=== PATIENT | male | born 1940 | race African-American/Black ===

== ENCOUNTER → 2017-01-01 | Outpatient (CLI) | payer MEDICARE | LOC: OD 13:01 | PROVIDERS: ATTEND Internal Medicine | DX: M16.0 Bilateral primary osteoarthritis of hip (principal) | CPT/HCPCS: 73522 ==

== ENCOUNTER → 2017-01-14 | Outpatient (CLI) | payer MEDICARE | LOC: RAD 08:52 | PROVIDERS: ATTEND Internal Medicine | DX: N23 Unspecified renal colic (principal); R94.4 Abnormal results of kidney function studies | CPT/HCPCS: 76770 ==

== ENCOUNTER 2017-11-04 07:16 | Inpatient (IN) | payer MEDICARE ==
--- NOTE | 2017-11-04 07:28 | ER Document Report ---
ED Dizziness/Weakness - General Chief Complaint: Fainting Stated Complaint: SYNCOPE Time Seen by Provider: 11/04/17 07:28 Notes: This is a 76-year-old male to the emergency department after having a syncopal episode this morning. Apparently had one yesterday as well. Patient denies any other symptoms at this time. States that he feels fine. Denies any chest pain, shortness of breath, abdominal pain, fever, chills or sweats. Granddaughter is present. States that he was complaining of a headache a few days ago as well. Has some chronic kidney disease but not on dialysis. No recent antibiotic use. Has started some new medications but does not know the names. he is followed by Dr. Shipman as an outpatient. TRAVEL OUTSIDE OF THE [place] IN LAST 30 DAYS: No - HPI Patient complains to provider of: Syncope Onset: Just prior to arrival Onset/Duration: Sudden Severity: Moderate Pain Level: 0 Associated symptoms: None - Related Data Allergies/Adverse Reactions: No Known Allergies Allergy (Verified 07/01/15 16:20) Past Medical History - General Information source: Patient - Social History Smoking Status: Never Smoker Cigarette use (# per day): No Frequency of alcohol use: None Drug Abuse: None Lives with: Family Family History: Reviewed & Not Pertinent - Past Medical History Cardiac Medical History: Reports: Hx Hypertension Pulmonary Medical History: Denies: Hx Tuberculosis Psychiatric Medical History: Denies: Hx Depression - Immunizations Hx Diphtheria, Pertussis, Tetanus Vaccination: Yes Review of Systems - Review of Systems Constitutional: No symptoms reported. denies: Chills, Diaphoresis, Fever, Malaise, Weakness EENT: No symptoms reported. denies: Blurred vision, Double vision, Ear pain, Throat pain, Difficulty swallowing Cardiovascular: No symptoms reported, Syncope. denies: Chest pain, Palpitations , Heart racing, Orthopnea, Edema, Paroxysmal Nocturnal Dysp Respiratory: No symptoms reported. denies: Cough, Hurts to breathe, Short of breath Gastrointestinal: No symptoms reported. denies: Abdominal pain, Diarrhea, Nausea, Vomiting Genitourinary: No symptoms reported. denies: Burning, Frequency, Flank pain, Hematuria Musculoskeletal: No symptoms reported. denies: Back pain, Gout, Joint pain, Joint swelling, Muscle stiffness, Neck pain Skin: No symptoms reported Hematologic/Lymphatic: No symptoms reported. denies: Anemia, Easy bleeding, Easy bruising Neurological/Psychological: No symptoms reported, Headaches. denies: Dementia, Depression, Anxiety, Weakness Physical Exam - Vital signs Vitals: Resp Pulse Ox 20 97 11/04/17 07:22 11/04/17 07:22 Interpretation: Hypotensive - General General appearance: Appears well, Alert - HEENT Head: Normocephalic, Atraumatic Eyes: Normal Pupils: PERRL - Respiratory Respiratory status: No respiratory distress Chest status: Nontender Breath sounds: Normal Chest palpation: Normal - Cardiovascular Rhythm: Regular Heart sounds: Normal auscultation Murmur: No - Abdominal Inspection: Normal Distension: No distension Bowel sounds: Normal Tenderness: Nontender Organomegaly: No organomegaly - Back Back: Normal, Nontender - Extremities General upper extremity: Normal inspection, Nontender, Normal color, Normal ROM , Normal temperature General lower extremity: Normal inspection, Nontender, Normal color, Normal ROM , Normal temperature, Normal weight bearing. No: Masoud's sign - Neurological Neuro grossly intact: Yes Cognition: Normal Orientation: AAOx4 Navid Coma Scale Eye Opening: Spontaneous Navid Coma Scale Verbal: Oriented Navid Coma Scale Motor: Obeys Commands Mccomb Coma Scale Total: 15 Speech: Normal Motor strength normal: LUE, RUE, LLE, RLE Sensory: Normal - Psychological Associated symptoms: Normal affect, Normal mood - Skin Skin Temperature: Warm Skin Moisture: Dry Skin Color: Normal Course - Re-evaluation Re-evalutation: 11/04/17 08:39 Patient with reported syncopal episodes. Patient is 76-year-old male. Bigeminy on EKG. Otherwise labs fairly unremarkable with exception of chronic kidney disease. Patient was positive for orthostatic vital signs with hypotension noted when standing. Will consult with his primary care doctor at this time, Dr. Shipman for admit - Vital Signs Vital signs: Temp Pulse Resp BP Pulse Ox 97.8 F 84 19 117/72 95 11/04/17 07:29 11/04/17 07:33 11/04/17 07:33 11/04/17 07:33 11/04/17 07:33 - Laboratory Result Diagrams: 11/04/17 07:00 11/04/17 07:00 Laboratory results interpreted by me: 11/04/17 11/04/17 07:00 07:00 RBC 4.12 L Hgb 12.4 L Hct 37.3 L Seg Neutrophils % 32.2 L Lymphocytes % 52.0 H Monocytes % 14.0 H Absolute Neutrophils 1.5 L BUN 27 H Creatinine 2.40 H Est GFR ( Amer) 32 L Est GFR (Non-Af Amer) 26 L Calcium 8.2 L ALT 13 L Albumin 3.2 L - EKG Interpretation by [place] EKG shows normal: Sinus rhythm, Intervals, QRS Complexes, ST-T Waves Rhythm: Other - Ventricular bigeminy with a left axis deviation Discharge - Discharge Clinical Impression: Orthostatic hypotension, Syncope and collapse Condition: Good Disposition: ADMITTED INPATIENT Unit Admitted: Telemetry - Dr. Shipman Referrals: BERTA SHIPMAN MD [Primary Care Provider] - Follow up as needed
[2017-11-04] MEDS ORDERED: NORMAL SALINE 1000 ML 1,000 ML IV ONE (07:46)
--- NOTE | 2017-11-04 07:46 | EKG REPORT ---
SEVERITY:- ABNORMAL ECG - SINUS RHYTHM VENTRICULAR BIGEMINY LEFT AXIS DEVIATION BORDERLINE R WAVE PROGRESSION, ANTERIOR LEADS , CONSIDER OLD ANT NY BORDERLINE T ABNORMALITIES, INFERIOR LEADS : Confirmed by: Burt Flores MD 04-Nov-2017 07:46:20
[2017-11-04 07:50] LABS: ABSOLUTE EOSINOPHILS # (AUTO) 0.1 10^3/uL (0.0-0.6); ABSOLUTE LYMPHOCYTES (AUTO) 2.3 10^3/uL (0.5-4.7); ABSOLUTE MONOCYTES (AUTO) 0.6 10^3/uL (0.1-1.4); ABSOLUTE NEUT (AUTO) 1.5 10^3/uL (1.7-8.2); BASOPHILS % (AUTO) 0.4 % (0-2); EOSINOPHILS % (AUTO) 1.4 % (0-6); HEMATOCRIT 37.3 % (37.9-51.0); HEMOGLOBIN 12.4 g/dL (13.5-17.0); MEAN CORPUSCULAR HGB CONC 33.2 g/dL (32.0-36.0); MEAN CORPUSCULAR VOLUME 91 fl (80-97); PLATELET COUNT 214 10^3/uL (150-450); RED BLOOD COUNT 4.12 10^6/uL (4.35-5.55); RED CELL DISTRIBUTION WIDTH 12.5 % (11.5-14.0); SEGMENTED NEUTROPHILS % (AUTO) 32.2 % (42-78); TOTAL CELLS COUNTED % (AUTO) 100 %; WHITE BLOOD COUNT 4.5 10^3/uL (4.0-10.5)
[2017-11-04 07:54] LABS: ALANINE AMINOTRANSFERASE 13 U/L (21-72); ALBUMIN 3.2 g/dL (3.5-5.0); ALKALINE PHOSPHATASE 59 U/L (38-126); ANION GAP 11 (5-19); ASPARTATE AMINO TRANSFERASE 21 U/L (17-59); BILIRUBIN,DIRECT 0.4 mg/dL (0.0-0.4); BILIRUBIN,TOTAL 0.4 mg/dL (0.2-1.3); BLOOD UREA NITROGEN 27 mg/dL (7-20); CALCIUM 8.2 mg/dL (8.4-10.2); CARBON DIOXIDE 24 mmol/L (22-30); CHLORIDE 107 mmol/L (98-107); CREATINE KINASE 89 U/L (55-170); GLUCOSE 97 mg/dL (75-110); POTASSIUM 3.7 mmol/L (3.6-5.0); SODIUM 141.6 mmol/L (137-145); TOTAL PROTEIN 6.7 g/dL (6.3-8.2)
[2017-11-04 08:04] LABS: CREATINE KINASE MB 0.29 ng/mL (<4.55)
[2017-11-04 08:05] LABS: TROPONIN I < 0.012 ng/mL
--- NOTE | 2017-11-04 08:07 | RADIOLOGY REPORT (SQ) ---
EXAM DESCRIPTION: CT HEAD WITHOUT COMPLETED DATE/TIME: 11/04/2017 7:57 am REASON FOR STUDY: headache and syncope COMPARISON: CT brain 11/08/2007 TECHNIQUE: Axial images acquired through the brain without intravenous contrast. Images reviewed wi th bone, brain and subdural windows. Images stored on PACS. All CT scanners at this facility use dose modulation, iterative reconstruction, and/or weight based d osing when appropriate to reduce radiation dose to as low as reasonably achievable (ALARA). [facility]: Dose Right [facility]: CareDose [facility]: Dose Right [facility]: Teradose 4D [facility]: Smart Technologies RADIATION DOSE: CT Rad equipment meets quality standard of care and radiation dose reduction techniq ues were employed. CTDIvol: 64.6 mGy. DLP: 1163 mGy-cm. mGy. LIMITATIONS: None. FINDINGS: VENTRICLES: Normal size and contour. CEREBRUM: No CT evidence of acute intracranial hemorrhage, mass effect, or midline. There is patchy b ifrontal and biparietal small vessel ischemic change in the deep white matter. CEREBELLUM: No acute hemorrhage. No mass effect or midline shift. Multiple old infarcts in the righ t and left cerebellar hemispheres EXTRAAXIAL SPACES: No fluid collections. No masses. ORBITS AND GLOBE: No intra- or extraconal masses. Normal contour of globe without masses. CALVARIUM: No fracture. PARANASAL SINUSES: No fluid or mucosal thickening. SOFT TISSUES: No mass or hematoma. OTHER: No other significant finding. 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 No acute findings EVIDENCE OF ACUTE STROKE: NO. COMMENT: Quality ID # [id number]: Final reports with documentation of one or more dose reduction techniques (e.g., Automated exposure control, adjustment of the mA and/or kV according to patient size, use of iterative reconstruction technique) TECHNICAL DOCUMENTATION: JOB ID: [id number] [employer] All Rights Reserved
--- NOTE | 2017-11-04 08:08 | RADIOLOGY REPORT (SQ) ---
EXAM DESCRIPTION: CHEST SINGLE VIEW COMPLETED DATE/TIME: 11/04/2017 7:59 am REASON FOR STUDY: syncope COMPARISON: AP chest 03/15/2014 EXAM PARAMETERS: NUMBER OF VIEWS: One view. TECHNIQUE: Single frontal radiographic view of the chest acquired. RADIATION DOSE: NA LIMITATIONS: None. FINDINGS: LUNGS AND PLEURA: No opacities, masses or pneumothorax. No pleural effusion. MEDIASTINUM AND HILAR STRUCTURES: No masses. Contour normal. HEART AND VASCULAR STRUCTURES: Heart normal in size. Normal vasculature. BONES: No acute findings. HARDWARE: None in the chest. OTHER: No other significant finding. IMPRESSION: NO ACUTE RADIOGRAPHIC FINDING IN THE CHEST. TECHNICAL DOCUMENTATION: JOB ID: [id number] [employer]- All Rights Reserved
[2017-11-04 09:25] LABS: APPEARANCE,URINE CLEAR; BILIRUBIN,URINE NEGATIVE (NEGATIVE); COLOR,URINE YELLOW; GLUCOSE, URINE NEGATIVE (NEGATIVE); KETONES,URINE NEGATIVE (NEGATIVE); LEUKOCYTE ESTERASE,URINE NEGATIVE (NEGATIVE); NITRITE,URINE NEGATIVE (NEGATIVE); PROTEIN,URINE NEGATIVE (NEGATIVE)
[2017-11-04 14:21] LABS: URINE AMPHETAMINES SCREEN NEGATIVE; URINE BARBITURATES SCREEN NEGATIVE; URINE BENZODIAZEPINES SCREEN NEGATIVE; URINE COCAINE SCREEN NEGATIVE; URINE MARIJUANA (THC) SCREEN NEGATIVE; URINE METHADONE SCREEN NEGATIVE; URINE PHENCYCLIDINE SCREEN NEGATIVE
[2017-11-04] MEDS: HEPARIN SOD (PORCINE) 5,000 UNIT/ML 1 ML SYRINGE SUBCUT SCH ×2 (15:28→21:25)
[2017-11-04 15:34] LABS: INTERNATIONAL RATION (INR) 1.03; PROTHROMBIN TIME 14.2 SEC (11.4-15.4)
[2017-11-04 15:35] LABS: PARTIAL THROMBOPLASTIN TIME 32.3 SEC (23.5-35.8)
[2017-11-04 15:50] LABS: LIPASE 278.2 U/L (23-300); PHOSPHORUS 2.9 mg/dL (2.5-4.5)
[2017-11-04 16:04] LABS: CREATINE KINASE MB 0.46 ng/mL (<4.55)
[2017-11-04 16:08] LABS: FREE T4 (FREE THYROXINE) 0.97 ng/dL (0.78-2.19)
[2017-11-04 16:09] LABS: TROPONIN I < 0.012 ng/mL
[2017-11-04 16:22] LABS: THYROID STIMULATING HORMONE 0.94 uIU/mL (0.47-4.68)
[2017-11-04] MEDS: NORMAL SALINE 1000 ML 1,000 ML IV PRN (19:07)
[2017-11-04 22:12] LABS: CREATINE KINASE MB 0.43 ng/mL (<4.55)
[2017-11-04 22:23] LABS: TROPONIN I < 0.012 ng/mL
[2017-11-05] MEDS: HEPARIN SOD (PORCINE) 5,000 UNIT/ML 1 ML SYRINGE SUBCUT SCH ×3 (05:30→21:13)
[2017-11-05] MEDS: NORMAL SALINE 1000 ML 1,000 ML IV PRN ×2 (05:34→21:11)
[2017-11-05 14:24] LABS: ABSOLUTE BASOPHILS # (AUTO) 0.1 10^3/uL (0.0-0.2); ABSOLUTE EOSINOPHILS # (AUTO) 0.1 10^3/uL (0.0-0.6); ABSOLUTE MONOCYTES (AUTO) 0.5 10^3/uL (0.1-1.4); ABSOLUTE NEUT (AUTO) 2.6 10^3/uL (1.7-8.2); BASOPHILS % (AUTO) 1.3 % (0-2); EOSINOPHILS % (AUTO) 1.2 % (0-6); HEMATOCRIT 36.9 % (37.9-51.0); HEMOGLOBIN 12.2 g/dL (13.5-17.0); LYMPHOCYTES % (AUTO) 38.3 % (13-45); MEAN CORPUSCULAR HEMOGLOBIN 29.8 pg (27.0-33.4); MEAN CORPUSCULAR VOLUME 90 fl (80-97); MONOCYTES % (AUTO) 10.1 % (3-13); PLATELET COUNT 214 10^3/uL (150-450); RED BLOOD COUNT 4.09 10^6/uL (4.35-5.55); RED CELL DISTRIBUTION WIDTH 12.7 % (11.5-14.0); SEGMENTED NEUTROPHILS % (AUTO) 49.1 % (42-78); TOTAL CELLS COUNTED % (AUTO) 100 %; WHITE BLOOD COUNT 5.2 10^3/uL (4.0-10.5)
--- NOTE | 2017-11-05 14:33 | PDOC H&P ---
History of Present Illness Admission Date/PCP: 11/04/17 09:50 BERTA SHIPMAN MD History of Present Illness: RICK SINGER SR is a 76 year old male, he has a history of dementia, hypertension, he was brought to the emergency room for evaluation of fainting spells. He has a history of chronic kidney disease with a baseline creatinine of 1.4. EMS was called to patient's residence, on evaluation by the EMS staff he was found to have a low blood pressure, the systolic blood pressure was as low as 60 he was transferred to from his residence to the emergency room for evaluation. In the emergency room blood work was done the serum creatinine was 2.4, CT head was done it showed multiple old infarcts in the right and left cerebellar hemispheres. Also found was patchy bifrontal and biparietal small vessel ischemic change in the white matter. When I saw the patient he cannot recall the incidents that led to his admission, he does not remember passing out. He denies any chest pain or shortness of breath. He recently had Mini- Mental evaluation done in the office, he was found to have mild dementia and he was started on Aricept. The exact etiology of the low blood pressure is not clear, there is no history of diarrhea, no history of vomiting, no history of bleeding. Past Medical History Cardiac Medical History: Reports: Hypertension Renal/ Medical History: Reports: Chronic Kidney Disease, Other - Chronic kidney disease stage III Musculoskeltal Medical History: Reports: Arthritis Psychiatric Medical History: Reports: Dementia Social History Lives with: Family Smoking Status: Former Smoker Frequency of Alcohol Use: None Hx Recreational Drug Use: No Hx Prescription Drug Abuse: No Family History Family History: Reviewed & Not Pertinent Parental Family History Reviewed: Yes Children Family History Reviewed: Yes Sibling(s) Family History Reviewed.: Yes Medication/Allergy Home Medications: Acetaminophen [Tylenol Extra Strength 500 mg Tablet] 500 mg PO Q6 11/04/17 Allopurinol [Zyloprim 100 mg Tablet] 100 mg PO TID 11/04/17 Aspirin [Aspirin 81 mg Chewable Tablet] 81 mg PO DAILY 11/04/17 Lisinopril/Hydrochlorothiazide [Lisinopril-Hctz 20-12.5 mg Tab] 1 tab PO Q12 Allergies/Adverse Reactions: No Known Allergies Allergy (Verified 11/04/17 08:49) Review of Systems Constitutional: ABSENT: chills, fever(s), headache(s), weight gain, weight loss Eyes: ABSENT: visual disturbances Ears: ABSENT: hearing changes Cardiovascular: ABSENT: chest pain, dyspnea on exertion, edema, orthropnea, palpitations Respiratory: ABSENT: cough, hemoptysis Gastrointestinal: ABSENT: abdominal pain, constipation, diarrhea, hematemesis, hematochezia, nausea, vomiting Genitourinary: ABSENT: dysuria, hematuria Musculoskeletal: ABSENT: joint swelling Integumentary: ABSENT: rash, wounds Neurological: PRESENT: syncope Psychiatric: ABSENT: anxiety, depression, homidical ideation, suicidal ideation Endocrine: ABSENT: cold intolerance, heat intolerance, menstrual abnormalities, polydipsia, polyuria Hematologic/Lymphatic: ABSENT: easy bleeding, easy bruising, lymphadenopathy Physical Exam Vital Signs: Temp Pulse Resp BP Pulse Ox 98.4 F 65 16 98/72 L 100 11/05/17 12:02 11/05/17 12:02 11/05/17 12:02 11/05/17 12:02 11/05/17 12:02 Intake & Output 11/04/17 11/05/17 11/06/17 06:59 06:59 06:59 Intake Total 1037 Balance 1037 Weight 69.9 kg General appearance: PRESENT: no acute distress, well-developed, well-nourished Head exam: PRESENT: atraumatic, normocephalic Eye exam: PRESENT: conjunctiva pink, EOMI, PERRLA Ear exam: PRESENT: normal external ear exam Mouth exam: PRESENT: moist, tongue midline Neck exam: PRESENT: full ROM Respiratory exam: PRESENT: clear to auscultation du Cardiovascular exam: PRESENT: RRR, +S1, +S2 GI/Abdominal exam: PRESENT: normal bowel sounds, soft Rectal exam: PRESENT: deferred Neurological exam: PRESENT: alert, awake, oriented to person, oriented to place , oriented to time, oriented to situation, CN II-XII grossly intact Psychiatric exam: PRESENT: appropriate affect, normal mood Skin exam: PRESENT: dry, intact, warm Results Laboratory Results: 11/04/17 11/04/17 11/04/17 15:18 15:18 15:18 Phosphorus 2.9 Magnesium 2.1 Ammonia < 8.7 L Amylase 106 Lipase 278.2 TSH 0.94 Free T4 0.97 0211/04/17 11/04/17 15:18 15:18 21:34 Creatine Kinase 103 84 CK-MB (CK-2) 0.46 Troponin I < 0.012 11/04/17 21:34 Creatine Kinase CK-MB (CK-2) 0.43 Troponin I < 0.012 Impressions: Chest X-Ray 11/04/17 07:29 IMPRESSION: NO ACUTE RADIOGRAPHIC FINDING IN THE CHEST. 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 No acute findings EVIDENCE OF ACUTE STROKE: NO. Assessment & Plan - Diagnosis (1) Acute kidney injury Is this a current diagnosis for this admission?: Yes Plan: He has acute kidney injury most likely due to ATN from hypotension, kidney ultrasound was done recently, will slowly hydrate patient with normal saline, will continue to monitor kidney function very closely (2) Syncope Qualifiers: Syncope type: unspecified Qualified Code(s): R55 - Syncope and collapse Is this a current diagnosis for this admission?: Yes Plan: The loss of consciousness is most likely from the low blood pressure, 2D echo will be ordered, cardiac enzymes will be ordered (3) Hypotension Qualifiers: Hypotension type: unspecified hypotension type Qualified Code(s): I95.9 - Hypotension, unspecified Is this a current diagnosis for this admission?: Yes Plan: The exact etiology of the hypotension is not clear, there is no evidence of loss of volume, there is no hemorrhage, no GI bleed no diarrhea no vomiting (4) Dementia Qualifiers: Dementia type: Alzheimer's disease Alzheimer's disease onset: late-onset Dementia behavioral disturbance: without behavioral disturbance Qualified Code (s): G30.1 - Alzheimer's disease with late onset; F02.80 - Dementia in other diseases classified elsewhere without behavioral disturbance; F02.80 - Dementia in other diseases classified elsewhere without behavioral disturbance; F02.80 - Dementia in other diseases classified elsewhere without behavioral disturbance Is this a current diagnosis for this admission?: Yes Plan: Patient with baseline dementia that could be a component of low intake with dehydration
[2017-11-05 15:41] LABS: ALANINE AMINOTRANSFERASE 16 U/L (21-72); ALBUMIN 3.1 g/dL (3.5-5.0); ALKALINE PHOSPHATASE 59 U/L (38-126); ANION GAP 8 (5-19); ASPARTATE AMINO TRANSFERASE 21 U/L (17-59); BILIRUBIN,DIRECT 0.3 mg/dL (0.0-0.4); BILIRUBIN,TOTAL 0.3 mg/dL (0.2-1.3); BLOOD UREA NITROGEN 20 mg/dL (7-20); CALCIUM 8.2 mg/dL (8.4-10.2); CARBON DIOXIDE 23 mmol/L (22-30); CHLORIDE 109 mmol/L (98-107); GLUCOSE 85 mg/dL (75-110); POTASSIUM 3.8 mmol/L (3.6-5.0); SODIUM 140.3 mmol/L (137-145); TOTAL PROTEIN 6.5 g/dL (6.3-8.2)
--- NOTE | 2017-11-05 17:15 | PDOC PROGRESS REPORT ---
Subjective Progress Note for:: 11/05/17 Subjective:: Patient was seen today by the bedside, he is very confused, he pulled off his IV , expressing noncoherent issues. The kidney function is improved from yesterday with hydration suggesting that the acute kidney injury is probably prerenal, 2D echo was done today result is pending. Patient is refusing IV to be restarted. Reason For Visit: HYPOTENSION, SYNCOPE Physical Exam Vital Signs: Temp Pulse Resp BP Pulse Ox 97.7 F 57 L 16 161/76 H 100 11/05/17 16:04 11/05/17 16:04 11/05/17 16:04 11/05/17 16:04 11/05/17 16:04 Intake & Output 11/04/17 11/05/17 11/06/17 06:59 06:59 06:59 Intake Total 1037 Balance 1037 Weight 69.9 kg General appearance: PRESENT: no acute distress Eye exam: PRESENT: PERRLA Respiratory exam: PRESENT: clear to auscultation du Cardiovascular exam: PRESENT: +S1, +S2 Neurological exam: PRESENT: alert, other - Very confused Results Laboratory Results: 11/05/17 13:59 11/05/17 14:53 11/05/17 11/05/17 13:59 14:53 WBC 5.2 RBC 4.09 L Hgb 12.2 L Hct 36.9 L MCV 90 MCH 29.8 MCHC 33.0 RDW 12.7 Plt Count 214 Seg Neutrophils % 49.1 Lymphocytes % 38.3 Monocytes % 10.1 Eosinophils % 1.2 Basophils % 1.3 Absolute Neutrophils 2.6 Absolute Lymphocytes 2.0 Absolute Monocytes 0.5 Absolute Eosinophils 0.1 Absolute Basophils 0.1 Sodium 140.3 Potassium 3.8 Chloride 109 H Carbon Dioxide 23 Anion Gap 8 BUN 20 Creatinine 1.36 H Est GFR ( Amer) > 60 Est GFR (Non-Af Amer) 51 L Glucose 85 Calcium 8.2 L Total Bilirubin 0.3 AST 21 ALT 16 L Alkaline Phosphatase 59 Total Protein 6.5 Albumin 3.1 L 11/04/17 11/04/17 11/04/17 15:18 15:18 21:34 Creatine Kinase 103 84 CK-MB (CK-2) 0.46 Troponin I < 0.012 11/04/17 21:34 Creatine Kinase CK-MB (CK-2) 0.43 Troponin I < 0.012 Impressions: Chest X-Ray 11/04/17 07:29 IMPRESSION: NO ACUTE RADIOGRAPHIC FINDING IN THE CHEST. 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 No acute findings EVIDENCE OF ACUTE STROKE: NO. Assessment & Plan - Diagnosis (1) Acute kidney injury Is this a current diagnosis for this admission?: Yes (2) Syncope Qualifiers: Syncope type: unspecified Qualified Code(s): R55 - Syncope and collapse Is this a current diagnosis for this admission?: Yes (3) Hypotension Qualifiers: Hypotension type: unspecified hypotension type Qualified Code(s): I95.9 - Hypotension, unspecified Is this a current diagnosis for this admission?: Yes (4) Dementia Qualifiers: Dementia type: Alzheimer's disease Alzheimer's disease onset: late-onset Dementia behavioral disturbance: without behavioral disturbance Qualified Code (s): G30.1 - Alzheimer's disease with late onset; F02.80 - Dementia in other diseases classified elsewhere without behavioral disturbance; F02.80 - Dementia in other diseases classified elsewhere without behavioral disturbance; F02.80 - Dementia in other diseases classified elsewhere without behavioral disturbance Is this a current diagnosis for this admission?: Yes (5) Delirium Is this a current diagnosis for this admission?: Yes Plan: The exact etiology is not clear, the differential diagnosis will include metabolic, sundowning, progressive dementia, haldol 5 mg IM administered
[2017-11-05] MEDS ORDERED: HALOPERIDOL LACTATE INJ 5 MG/1 ML VIAL IM ONE (18:15)
--- NOTE | 2017-11-05 18:51 | XCELERA REPORT ---
[address] [address] Transthoracic Echocardiogram Report Name: RICK SINGER SR Age: 76 yrs Gender: Male : 1940 Patient Status: Inpatient Patient Location: [address] [place] [address] Study Date: 11/05/2017 03:23 PM Height: 63 in Weight: 151 lb BSA: 1.7 m2 Procedure: A complete two-dimensional transthoracic echocardiogram was performed (2D, M-mode, spectral and color flow Doppler). The study was technically adequate with some images being suboptimal in quality. Reason For Study: syncope Ordering Physician: BERTA SHIPMAN Performed By: Hilda Patel Interpretation Summary Left ventricular systolic function is low normal. There is borderline concentric left ventricular hypertrophy. The left ventricle is grossly normal size. Doppler measurements suggest pseudonormalized left ventricular relaxation, which is associated with grade II/IV or mild to moderate diastolic dysfunction Not all wall segments were well visualized. The right ventricular systolic function is normal. The right atrium is normal in size The left atrial size is normal. There is a moderate amount of mitral regurgitation There is no mitral valve stenosis. There is a trace to mild amount of aortic regurgitation There is no aortic valve stenosis There is a trace or physiologic amount of tricuspid regurgitation Tricuspid regurgitation jet envelope not well defined to measure RV systolic pressure accurately. The aortic root is not well visualized but is probably normal size. The inferior vena cava appeared normal and decreased > 50% with respiration (RAP 5-10 mmHg) There is no pericardial effusion. MMode/2D Measurements & Calculations RVDd: 3.3 cm LVIDd: 4.4 cm FS: 33.3 % Ao root diam: 3.3 cm IVSd: 1.2 cm LVIDs: 3.0 cm EDV(Teich): 88.8 ml LVPWd: 0.96 cm ESV(Teich): 33.6 ml Ao root area: 8.5 cm2 EF(Teich): 62.2 % LA dimension: 3.2 cm Doppler Measurements & Calculations MV E max héctor: MV P1/2t max héctor: Ao V2 max: LV V1 max P.5 cm/sec 79.0 cm/sec 101.6 cm/sec 2.5 mmHg MV A max héctor: MV P1/2t: 67.1 msec Ao max PG: LV V1 max: 79.5 cm/sec 4.1 mmHg 78.5 cm/sec MV E/A: 1.0 MVA(P1/2t): 3.3 cm2 MV dec slope: 344.9 cm/sec2 MV dec time: 0.21 sec PA V2 max: PI end-d héctor: TR max héctor: 76.0 cm/sec 69.2 cm/sec 198.2 cm/sec PA max PG: TR max P.3 mmHg 15.7 mmHg Left Ventricle The left ventricle is grossly normal size. There is borderline concentric left ventricular hypertrophy. Left ventricular systolic function is low normal. Doppler measurements suggest pseudonormalized left ventricular relaxation, which is associated with grade II/IV or mild to moderate diastolic dysfunction. Not all wall segments were well visualized. Right Ventricle The right ventricle is grossly normal size. There is normal right ventricular wall thickness. The right ventricular systolic function is normal. Atria The right atrium is normal in size. The left atrial size is normal. Interarterial septum not well visualized and not well dopplered. Cannot comment on ASD/PFO presence. Mitral Valve The mitral valve is grossly normal. There is no mitral valve stenosis. There is a moderate amount of mitral regurgitation. Aortic Valve The aortic valve opens well. The aortic valve is trileaflet. There is no aortic valve stenosis. There is a trace to mild amount of aortic regurgitation. Tricuspid Valve The tricuspid valve is not well visualized secondary to technical limitations. There is no tricuspid stenosis. There is a trace or physiologic amount of tricuspid regurgitation. Tricuspid regurgitation jet envelope not well defined to measure RV systolic pressure accurately. Pulmonic Valve The pulmonic valve is not well visualized. Great Vessels The aortic root is not well visualized but is probably normal size. The inferior vena cava appeared normal and decreased > 50% with respiration (RAP 5-10 mmHg). Effusions There is no pericardial effusion. : BERTA SHIPMAN > Simona Carranza
[2017-11-06] MEDS: HEPARIN SOD (PORCINE) 5,000 UNIT/ML 1 ML SYRINGE SUBCUT SCH ×3 (05:12→23:59)
[2017-11-06 06:03] LABS: ABSOLUTE EOSINOPHILS # (AUTO) 0.2 10^3/uL (0.0-0.6); ABSOLUTE LYMPHOCYTES (AUTO) 2.4 10^3/uL (0.5-4.7); ABSOLUTE MONOCYTES (AUTO) 0.6 10^3/uL (0.1-1.4); BASOPHILS % (AUTO) 0.4 % (0-2); EOSINOPHILS % (AUTO) 3.1 % (0-6); HEMATOCRIT 33.1 % (37.9-51.0); LYMPHOCYTES % (AUTO) 45.8 % (13-45); MEAN CORPUSCULAR HEMOGLOBIN 29.9 pg (27.0-33.4); MEAN CORPUSCULAR HGB CONC 33.4 g/dL (32.0-36.0); MEAN CORPUSCULAR VOLUME 90 fl (80-97); MONOCYTES % (AUTO) 11.6 % (3-13); PLATELET COUNT 185 10^3/uL (150-450); RED BLOOD COUNT 3.69 10^6/uL (4.35-5.55); RED CELL DISTRIBUTION WIDTH 12.5 % (11.5-14.0); SEGMENTED NEUTROPHILS % (AUTO) 39.1 % (42-78); TOTAL CELLS COUNTED % (AUTO) 100 %; WHITE BLOOD COUNT 5.2 10^3/uL (4.0-10.5)
[2017-11-06] MEDS: NORMAL SALINE 1000 ML 1,000 ML IV PRN ×2 (09:05→18:56)
--- NOTE | 2017-11-06 10:31 | RADIOLOGY REPORT (SQ) ---
EXAM DESCRIPTION: U/S RETROPERITON (RENAL/AORTA) COMPLETED DATE/TIME: 11/06/2017 9:59 am REASON FOR STUDY: acute kidney injury COMPARISON: Renal ultrasound 07/18/2010, 06/19/2016, 01/14/2017 MRI lumbar spine 08/13/2010 TECHNIQUE: Dynamic and static grayscale images acquired of the kidneys and bladder and recorded on P ACS. Additional selected color Doppler and spectral images recorded. LIMITATIONS: None. FINDINGS: On the right side, the kidney measures 9.8 cm in length with diffuse cortical thinning and increased echogenicity, new since 2009. There are multiple right-sided renal cortical cysts, the la rgest is 9 cm in size along the right mid-pole kidney. On the left side, kidney measures 10 cm in length with very mild cortical thinning and normal cortica l echogenicity, similar compared to studies dating back to 2009. Multiple left renal cortical cysts are present, the largest is 5 cm in size. No hydronephrosis. No renal stones. Urinary bladder unremarkable IMPRESSION: No hydronephrosis. No gross ultrasound evidence of urinary calculi. Right-sided renal cortical thinning and increased echogenicity new compared to 2009. Multiple bilateral renal cortical cysts TECHNICAL DOCUMENTATION: JOB ID: [id number] [employer]- All Rights Reserved
--- NOTE | 2017-11-06 10:40 | Physician Advisory Note ---
Physician Advisor ProgressNote .: Pursuant to the plan for [facility], I have reviewed the medical record for this patient. Physician Advisor Statement: Nice documentation of NELA w/baseline Cr 1.4, & of specific examples describing acute delirium. Please consider documenting, if you agree: 1. "syncope, suspect due to " (need cause explicit) 2. "acute delirium, due to " (& again mention in the DCSummary the evidence of change from baseline mental status) A. "Acute ____ Encephalopathy, due to " (NELA, intravascular volume depletion, cerebral ischemia from hypotension, infxn, ...), - or - B. Psych d/o: "progressive ___ type dementia [&/or sundowning]" Please also continue either to document "ATN due to severe hypotension", or state "ATN was ruled out". Thanks! CK
[2017-11-06 19:38] LABS: ABSOLUTE EOSINOPHILS # (AUTO) 0.2 10^3/uL (0.0-0.6); ABSOLUTE MONOCYTES (AUTO) 0.7 10^3/uL (0.1-1.4); ABSOLUTE NEUT (AUTO) 2.6 10^3/uL (1.7-8.2); HEMATOCRIT 35.4 % (37.9-51.0); MEAN CORPUSCULAR HEMOGLOBIN 29.8 pg (27.0-33.4); TOTAL CELLS COUNTED % (AUTO) 100 %
[2017-11-06 19:46] LABS: ABSOLUTE LYMPHOCYTES (AUTO) 2.5 10^3/uL (0.5-4.7); BASOPHILS % (AUTO) 0.8 % (0-2); EOSINOPHILS % (AUTO) 2.9 % (0-6); HEMOGLOBIN 11.8 g/dL (13.5-17.0); LYMPHOCYTES % (AUTO) 41.5 % (13-45); MEAN CORPUSCULAR HGB CONC 33.4 g/dL (32.0-36.0); MEAN CORPUSCULAR VOLUME 89 fl (80-97); MONOCYTES % (AUTO) 11.2 % (3-13); PLATELET COUNT 212 10^3/uL (150-450); RED BLOOD COUNT 3.97 10^6/uL (4.35-5.55); RED CELL DISTRIBUTION WIDTH 12.6 % (11.5-14.0); SEGMENTED NEUTROPHILS % (AUTO) 43.6 % (42-78); WHITE BLOOD COUNT 5.9 10^3/uL (4.0-10.5)
[2017-11-06 19:47] LABS: ALANINE AMINOTRANSFERASE 18 U/L (21-72); ALBUMIN 2.9 g/dL (3.5-5.0); ALKALINE PHOSPHATASE 52 U/L (38-126); ANION GAP 7 (5-19); ASPARTATE AMINO TRANSFERASE 23 U/L (17-59); BILIRUBIN,DIRECT 0.4 mg/dL (0.0-0.4); BILIRUBIN,TOTAL 0.4 mg/dL (0.2-1.3); BLOOD UREA NITROGEN 17 mg/dL (7-20); CALCIUM 8.5 mg/dL (8.4-10.2); CARBON DIOXIDE 23 mmol/L (22-30); CHLORIDE 112 mmol/L (98-107); GLUCOSE 98 mg/dL (75-110); POTASSIUM 4.3 mmol/L (3.6-5.0); SODIUM 141.8 mmol/L (137-145); TOTAL PROTEIN 6.4 g/dL (6.3-8.2)
--- NOTE | 2017-11-06 20:58 | PDOC PROGRESS REPORT ---
Subjective Progress Note for:: 11/06/17 Subjective:: Patient was seen by the bedside, he continued to manifest episodes of confusion presently requiring a sitter watching over him for 24 hours. The kidney ultrasound showed polycystic kidneys, he was seen by the bedside still somewhat confused Reason For Visit: HYPOTENSION, SYNCOPE Physical Exam Vital Signs: Temp Pulse Resp BP Pulse Ox 97.6 F 96 18 146/65 H 100 11/06/17 19:42 11/06/17 19:42 11/06/17 19:42 11/06/17 19:42 11/06/17 19:42 Intake & Output 11/05/17 11/06/17 11/07/17 06:59 06:59 06:59 Intake Total 1037 2499 1622 Output Total 150 400 Balance 1037 2349 1222 Weight 69.9 kg 68.8 kg Results Laboratory Results: 11/06/17 19:13 11/06/17 19:13 11/06/17 11/06/17 11/06/17 05:25 19:13 19:13 WBC 5.2 5.9 RBC 3.69 L 3.97 L Hgb 11.0 L 11.8 L Hct 33.1 L 35.4 L MCV 90 89 MCH 29.9 29.8 MCHC 33.4 33.4 RDW 12.5 12.6 Plt Count 185 212 Seg Neutrophils % 39.1 L 43.6 Lymphocytes % 45.8 H 41.5 Monocytes % 11.6 11.2 Eosinophils % 3.1 2.9 Basophils % 0.4 0.8 Absolute Neutrophils 2.0 2.6 Absolute Lymphocytes 2.4 2.5 Absolute Monocytes 0.6 0.7 Absolute Eosinophils 0.2 0.2 Absolute Basophils 0.0 0.0 Sodium 141.8 Potassium 4.3 Chloride 112 H Carbon Dioxide 23 Anion Gap 7 BUN 17 Creatinine 1.21 Est GFR ( Amer) > 60 Est GFR (Non-Af Amer) 58 L Glucose 98 Calcium 8.5 Total Bilirubin 0.4 AST 23 ALT 18 L Alkaline Phosphatase 52 Total Protein 6.4 Albumin 2.9 L 11/04/17 11/04/17 11/04/17 15:18 15:18 21:34 Creatine Kinase 103 84 CK-MB (CK-2) 0.46 Troponin I < 0.012 11/04/17 21:34 Creatine Kinase CK-MB (CK-2) 0.43 Troponin I < 0.012 Impressions: Chest X-Ray 11/04/17 07:29 IMPRESSION: NO ACUTE RADIOGRAPHIC FINDING IN THE CHEST. 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 No acute findings EVIDENCE OF ACUTE STROKE: NO. Renal Ultrasound 11/06/17 00:00 IMPRESSION: No hydronephrosis. No gross ultrasound evidence of urinary calculi. Right-sided renal cortical thinning and increased echogenicity new compared to 2009. Multiple bilateral renal cortical cysts Assessment & Plan - Diagnosis (1) Acute kidney injury Is this a current diagnosis for this admission?: Yes Plan: He has chronic kidney disease with superimposed acute kidney injury, with hydration the kidney function is normalized. Kidney ultrasound showed polycystic kidneys (2) Syncope Qualifiers: Syncope type: unspecified Qualified Code(s): R55 - Syncope and collapse Is this a current diagnosis for this admission?: Yes Plan: The combination of chronic diastolic dysfunction and dehydration is probably the etiology of his syncope (3) Hypotension Qualifiers: Hypotension type: unspecified hypotension type Qualified Code(s): I95.9 - Hypotension, unspecified Is this a current diagnosis for this admission?: Yes (4) Dementia Qualifiers: Dementia type: Alzheimer's disease Alzheimer's disease onset: late-onset Dementia behavioral disturbance: without behavioral disturbance Qualified Code (s): G30.1 - Alzheimer's disease with late onset; F02.80 - Dementia in other diseases classified elsewhere without behavioral disturbance; F02.80 - Dementia in other diseases classified elsewhere without behavioral disturbance; F02.80 - Dementia in other diseases classified elsewhere without behavioral disturbance Is this a current diagnosis for this admission?: Yes (5) Delirium Is this a current diagnosis for this admission?: Yes (6) Polycystic kidney disease Is this a current diagnosis for this admission?: Yes (7) Chronic diastolic heart failure Is this a current diagnosis for this admission?: Yes
[2017-11-07] MEDS: HEPARIN SOD (PORCINE) 5,000 UNIT/ML 1 ML SYRINGE SUBCUT SCH ×3 (06:54→22:24)
[2017-11-07 07:05] LABS: ABSOLUTE EOSINOPHILS # (AUTO) 0.2 10^3/uL (0.0-0.6); ABSOLUTE LYMPHOCYTES (AUTO) 2.1 10^3/uL (0.5-4.7); ABSOLUTE MONOCYTES (AUTO) 0.7 10^3/uL (0.1-1.4); ABSOLUTE NEUT (AUTO) 2.5 10^3/uL (1.7-8.2); BASOPHILS % (AUTO) 0.1 % (0-2); HEMATOCRIT 33.8 % (37.9-51.0); HEMOGLOBIN 11.4 g/dL (13.5-17.0); LYMPHOCYTES % (AUTO) 38.4 % (13-45); MEAN CORPUSCULAR HEMOGLOBIN 29.8 pg (27.0-33.4); MEAN CORPUSCULAR HGB CONC 33.6 g/dL (32.0-36.0); MEAN CORPUSCULAR VOLUME 89 fl (80-97); MONOCYTES % (AUTO) 12.1 % (3-13); PLATELET COUNT 201 10^3/uL (150-450); RED BLOOD COUNT 3.81 10^6/uL (4.35-5.55); RED CELL DISTRIBUTION WIDTH 12.6 % (11.5-14.0); SEGMENTED NEUTROPHILS % (AUTO) 46.4 % (42-78); TOTAL CELLS COUNTED % (AUTO) 100 %; WHITE BLOOD COUNT 5.4 10^3/uL (4.0-10.5)
[2017-11-07 07:26] LABS: ALANINE AMINOTRANSFERASE 17 U/L (21-72); ALBUMIN 2.9 g/dL (3.5-5.0); ALKALINE PHOSPHATASE 52 U/L (38-126); ANION GAP 5 (5-19); ASPARTATE AMINO TRANSFERASE 46 U/L (17-59); BILIRUBIN,DIRECT 0.5 mg/dL (0.0-0.4); BILIRUBIN,TOTAL 0.5 mg/dL (0.2-1.3); BLOOD UREA NITROGEN 18 mg/dL (7-20); CALCIUM 7.9 mg/dL (8.4-10.2); CARBON DIOXIDE 21 mmol/L (22-30); CHLORIDE 116 mmol/L (98-107); GLUCOSE 88 mg/dL (75-110); SODIUM 142.4 mmol/L (137-145); TOTAL PROTEIN 6.4 g/dL (6.3-8.2)
--- NOTE | 2017-11-07 22:14 | PDOC PROGRESS REPORT ---
Subjective Progress Note for:: 11/07/17 Subjective:: Patient was seen by the bedside, is very confused, agitated, he wants to go home , not safe for discharge, no family presently at home, he has baseline dementia Reason For Visit: HYPOTENSION, SYNCOPE Physical Exam Vital Signs: Temp Pulse Resp BP Pulse Ox 97.9 F 83 20 135/80 H 100 11/07/17 19:42 11/07/17 19:42 11/07/17 19:42 11/07/17 19:42 11/07/17 19:42 Intake & Output 11/06/17 11/07/17 11/08/17 06:59 06:59 06:59 Intake Total 2499 3295 1476 Output Total 150 400 Balance 2349 2895 1476 Weight 68.8 kg 69 kg General appearance: PRESENT: no acute distress Eye exam: PRESENT: PERRLA Respiratory exam: PRESENT: clear to auscultation du Cardiovascular exam: PRESENT: +S1, +S2 GI/Abdominal exam: PRESENT: soft Neurological exam: PRESENT: alert, other - Confused Results Laboratory Results: 11/07/17 06:23 11/07/17 06:23 11/07/17 11/07/17 06:23 06:23 WBC 5.4 RBC 3.81 L Hgb 11.4 L Hct 33.8 L MCV 89 MCH 29.8 MCHC 33.6 RDW 12.6 Plt Count 201 Seg Neutrophils % 46.4 Lymphocytes % 38.4 Monocytes % 12.1 Eosinophils % 3.0 Basophils % 0.1 Absolute Neutrophils 2.5 Absolute Lymphocytes 2.1 Absolute Monocytes 0.7 Absolute Eosinophils 0.2 Absolute Basophils 0.0 Sodium 142.4 Potassium 4.0 Chloride 116 H Carbon Dioxide 21 L Anion Gap 5 BUN 18 Creatinine 1.14 Est GFR ( Amer) > 60 Est GFR (Non-Af Amer) > 60 Glucose 88 Calcium 7.9 L Total Bilirubin 0.5 AST 46 ALT 17 L Alkaline Phosphatase 52 Total Protein 6.4 Albumin 2.9 L 11/04/17 11/04/17 11/04/17 15:18 15:18 21:34 Creatine Kinase 103 84 CK-MB (CK-2) 0.46 Troponin I < 0.012 11/04/17 21:34 Creatine Kinase CK-MB (CK-2) 0.43 Troponin I < 0.012 Impressions: Chest X-Ray 11/04/17 07:29 IMPRESSION: NO ACUTE RADIOGRAPHIC FINDING IN THE CHEST. 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 No acute findings EVIDENCE OF ACUTE STROKE: NO. Renal Ultrasound 11/06/17 00:00 IMPRESSION: No hydronephrosis. No gross ultrasound evidence of urinary calculi. Right-sided renal cortical thinning and increased echogenicity new compared to 2009. Multiple bilateral renal cortical cysts Assessment & Plan - Diagnosis (1) Acute kidney injury Is this a current diagnosis for this admission?: Yes (2) Syncope Qualifiers: Syncope type: unspecified Qualified Code(s): R55 - Syncope and collapse Is this a current diagnosis for this admission?: Yes (3) Hypotension Qualifiers: Hypotension type: unspecified hypotension type Qualified Code(s): I95.9 - Hypotension, unspecified Is this a current diagnosis for this admission?: Yes (4) Dementia Qualifiers: Dementia type: Alzheimer's disease Alzheimer's disease onset: late-onset Dementia behavioral disturbance: without behavioral disturbance Qualified Code (s): G30.1 - Alzheimer's disease with late onset; F02.80 - Dementia in other diseases classified elsewhere without behavioral disturbance; F02.80 - Dementia in other diseases classified elsewhere without behavioral disturbance; F02.80 - Dementia in other diseases classified elsewhere without behavioral disturbance Is this a current diagnosis for this admission?: Yes (5) Delirium Is this a current diagnosis for this admission?: Yes (6) Polycystic kidney disease Is this a current diagnosis for this admission?: Yes (7) Chronic diastolic heart failure Is this a current diagnosis for this admission?: Yes (8) Chronic kidney disease, stage 3 Is this a current diagnosis for this admission?: Yes
[2017-11-08] MEDS: HEPARIN SOD (PORCINE) 5,000 UNIT/ML 1 ML SYRINGE SUBCUT SCH ×2 (05:22→14:42)
--- NOTE | 2017-11-08 16:41 | PDOC DISCHARGE SUMMARY ---
General - Admit/Disc Date/PCP Admission Date/Primary Care Provider: 11/04/17 09:50 BERTA SHIPMAN MD Discharge Date: 11/08/17 - Discharge Diagnosis (1) Acute kidney injury Is this a current diagnosis for this admission?: Yes (2) Syncope Is this a current diagnosis for this admission?: Yes (3) Hypotension Is this a current diagnosis for this admission?: Yes (4) Dementia Is this a current diagnosis for this admission?: Yes (5) Delirium Is this a current diagnosis for this admission?: Yes (6) Polycystic kidney disease Is this a current diagnosis for this admission?: Yes (7) Chronic diastolic heart failure Is this a current diagnosis for this admission?: Yes (8) Chronic kidney disease, stage 3 Is this a current diagnosis for this admission?: Yes - Additional Information Discharge Diet: Diabetic Discharge Activity: Activity As Tolerated Prescriptions: Lisinopril 20 mg PO BID #60 tablet Home Medications: Acetaminophen [Tylenol Extra Strength 500 mg Tablet] 500 mg PO Q6 11/04/17 Allopurinol [Zyloprim 100 mg Tablet] 100 mg PO TID 11/04/17 Aspirin [Aspirin 81 mg Chewable Tablet] 81 mg PO DAILY 11/04/17 Lisinopril 20 mg PO BID #60 tablet 11/08/17 History of Present Illness History of Present Illness: RICK SINGER SR is a 76 year old male, he has a history of dementia, hypertension, he was brought to the emergency room for evaluation of fainting spells. He has a history of chronic kidney disease with a baseline creatinine of 1.4. EMS was called to patient's residence, on evaluation by the EMS staff he was found to have a low blood pressure, the systolic blood pressure was as low as 60 he was transferred to from his residence to the emergency room for evaluation. In the emergency room blood work was done the serum creatinine was 2.4, CT head was done it showed multiple old infarcts in the right and left cerebellar hemispheres. Also found was patchy bifrontal and biparietal small vessel ischemic change in the white matter. When I saw the patient he cannot recall the incidents that led to his admission, he does not remember passing out. He denies any chest pain or shortness of breath. He recently had Mini- Mental evaluation done in the office, he was found to have mild dementia and he was started on Aricept. The exact etiology of the low blood pressure is not clear, there is no history of diarrhea, no history of vomiting, no history of bleeding. Hospital Course Hospital Course: Patient was admitted for the management of acute kidney injury, hypotension, syncope. Ultrasound of the kidney was done, it showed polycystic kidneys, he has underlining chronic kidney disease with hydration there was improvement of the acute kidney injury. A 2D echo was done it showed chronic diastolic dysfunction. Hospital course was complicated with acute delirium which was felt to be due to medication versus progressive dementia. Patient has progressive dementia. Physical Exam Vital Signs: Temp Pulse Resp BP Pulse Ox 97.7 F 69 16 152/78 H 100 11/08/17 12:39 11/08/17 12:39 11/08/17 12:39 11/08/17 12:39 11/08/17 12:39 Intake & Output 11/07/17 11/08/17 11/09/17 06:59 06:59 06:59 Intake Total 3295 1486 Output Total 400 Balance 2895 1486 Weight 69 kg 68.9 kg General appearance: PRESENT: no acute distress Head exam: PRESENT: atraumatic, normocephalic Eye exam: PRESENT: PERRLA Neck exam: PRESENT: full ROM Respiratory exam: PRESENT: clear to auscultation du Cardiovascular exam: PRESENT: RRR, +S1, +S2 Vascular exam: PRESENT: normal capillary refill GI/Abdominal exam: PRESENT: normal bowel sounds, soft Rectal exam: PRESENT: deferred Neurological exam: PRESENT: alert Psychiatric exam: PRESENT: appropriate affect, normal mood Skin exam: PRESENT: dry, intact, warm Results Laboratory Results: 11/07/17 06:23 11/07/17 06:23 11/04/17 11/04/17 11/04/17 15:18 15:18 21:34 Creatine Kinase 103 84 CK-MB (CK-2) 0.46 Troponin I < 0.012 11/04/17 21:34 Creatine Kinase CK-MB (CK-2) 0.43 Troponin I < 0.012 Impressions: Chest X-Ray 11/04/17 07:29 IMPRESSION: NO ACUTE RADIOGRAPHIC FINDING IN THE CHEST. 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 No acute findings EVIDENCE OF ACUTE STROKE: NO. Renal Ultrasound 11/06/17 00:00 IMPRESSION: No hydronephrosis. No gross ultrasound evidence of urinary calculi. Right-sided renal cortical thinning and increased echogenicity new compared to 2009. Multiple bilateral renal cortical cysts Qualifiers - * PATEINT BEING DISCHARGED WITH ANY OF THE FOLLOWING DIAGNOSIS?: No
[2017-11-08 17:12] VITALS: BP 148/79
== END 2017-11-08 17:25 | disposition home or self-care (01) | DRG 683 ==
LOC: ER 07:16 → EH 09:50 → 3S 17:58
PROVIDERS: ADMIT Internal Medicine; ATTEND Internal Medicine
DX: N17.9 Acute kidney failure, unspecified (principal); Q61.3 Polycystic kidney, unspecified; I13.0 Hypertensive heart and chronic kidney disease with heart failure and stage 1 through stage 4 chronic kidney disease, or unspecified chronic kidney disease; I50.32 Chronic diastolic (congestive) heart failure; I95.1 Orthostatic hypotension; R55 Syncope and collapse; R00.8 Other abnormalities of heart beat; N18.3 Chronic kidney disease, stage 3 (moderate); I12.9 Hypertensive chronic kidney disease with stage 1 through stage 4 chronic kidney disease, or unspecified chronic kidney disease; M19.90 Unspecified osteoarthritis, unspecified site; G30.9 Alzheimer's disease, unspecified; F02.80 Dementia in other diseases classified elsewhere, unspecified severity, without behavioral disturbance, psychotic disturbance, mood disturbance, and anxiety; Z79.82 Long term (current) use of aspirin
CPT/HCPCS: 36415; 70450; 71045; 76770; 80053; 80307; 81001; 82140; 82150; 82550; 82553; 83690; 83735; 83880; 84100; 84439; 84443; 84484; 85025; 85610; 85730; 87086; 93005; 93010; 93306; 96360; 99291; G8978-GP; G8979-GP; G8980-GP; J1630; J1644; J7030

== ENCOUNTER → 2020-02-09 | Outpatient (CLI) | payer MEDICARE ==
--- NOTE | 2020-02-09 19:01 | RADIOLOGY REPORT (SQ) ---
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 Evaluate for metastatic disea se. COMPARISON: Bilateral hip radiographs, 01/01/2017. Chest radiograph, 11/04/2017 TECHNIQUE: Images of the axial and proximal appendicular skeleton are obtained, along with lateral s kull and frontal chest films. LIMITATIONS: None. FINDINGS: AP CHEST: No bony findings. Lungs are clear. LATERAL SKULL: No worrisome bone lesions. AP BOTH HUMERI: No worrisome bone lesions. TWO-VIEW LUMBAR SPINE: No worrisome bone lesions. TWO-VIEW THORACIC SPINE: No worrisome bone lesions. AP PELVIS: Severe osteoarthritis at the left hip with bony remodeling of the acetabulum, subchondral sclerosis and cystic change and large marginal osteophytes. Mild joint space narrowing, subchondral sclerosis and cystic change at the right femoroacetabular joint. AP BOTH FEMURS: No worrisome bone lesions. OTHER: No other significant finding. IMPRESSION: No worrisome bone lesions to suggest involvement with osteomyelofibrosis. Severe osteoa rthritis At the left hip. Mild osteoarthritis at the right hip. TECHNICAL DOCUMENTATION: JOB ID: [id number] [employer]- All Rights Reserved Reading location - IP/workstation name: [email or web address]
== END ==
LOC: RAD 15:00
PROVIDERS: ATTEND Internal Medicine
DX: D47.4 Osteomyelofibrosis (principal); M16.0 Bilateral primary osteoarthritis of hip
CPT/HCPCS: 77075